=== PATIENT | male | born 1970 | race Caucasian/White ===

== ENCOUNTER 2025-01-23 09:30 | Emergency (ER) | payer SELFPAY ==
[~2025-01-23] VITALS: Ht 170.2 cm; Wt 91.0 kg
[2025-01-23 09:33] VITALS: O2SAT 98
[2025-01-23] MEDS ORDERED: TETANUS, DIPHTHERIA, PERTUSSIS VAC/PF 0.5ML (>10YR OLD) IM ONE (10:45)
[2025-01-23] MEDS ORDERED: LIDOCAINE HCL/EPINEPHRINE 1%-EPI 1:100,000 20ML VIAL INFIL ONE (10:45)
[2025-01-23] MEDS: MORPHINE SULFATE 4 MG/ML INJ (FOR IV/IM USE) IM ONE (12:40)
[2025-01-23] MEDS ORDERED: GENTAMICIN IV ONE (13:00)
[2025-01-23] MEDS ORDERED: CEFAZOLIN 1000MG PREMIX 50 ML IV ONE (13:00)
[2025-01-23] MEDS: METRONIDAZOLE 500 MG PREMIX 100 ML IV ONE (13:08)
[2025-01-23] MEDS: CEFAZOLIN 1000MG PREMIX 50 ML IV ONE (13:39)
[2025-01-23 13:48] VITALS: BP 156/98; PULSE 84; RESP 16; TEMP 36.6; O2SAT 100
== END 2025-01-23 14:10 | disposition short-term general hospital (02) ==
LOC: ER 09:37
DX: S01.81XA Laceration without foreign body of other part of head, initial encounter (principal); W01.198A Fall on same level from slipping, tripping and stumbling with subsequent striking against other object, initial encounter; Y93.02 Activity, running; Y92.89 Other specified places as the place of occurrence of the external cause; Y99.8 Other external cause status
CPT/HCPCS: 99291; 70450; 96365; 96367; 73552; 71101; 70486; 96372; J0690; J3490; J2270; J1580; J7060